=== PATIENT | female | born 1950 | race Caucasian/White ===

== ENCOUNTER → 2019-01-20 11:32 | Outpatient (CLI) | payer MEDICARE, SELFPAY ==
--- NOTE | 2019-01-20 | DI.MG.S_ITS ---
BILATERAL DIGITAL SCREENING MAMMOGRAM 3D/2D WITH CAD: 01/20/2019 CLINICAL: Routine screening. Family history of breast cancer. Comparison is made to exams dated: 11/07/2015 mammogram - [facility], 10/20/2012 mammogram, and 06/26/2011 mammogram - [facility]. There are scattered fibroglandular elements in both breasts. Current study was also evaluated with a Computer Aided Detection (CAD) system. No significant masses, calcifications, or other findings are seen in either breast. There has been no significant interval change. IMPRESSION: NEGATIVE There is no mammographic evidence of malignancy. A 1 year screening mammogram is recommended. This exam was interpreted at Station ID: [id number]. NOTE: For mammograms, a report in lay terms will be sent to the patient. Approximately 15% of breast malignancies will not be visualized mammographically. In the management of a palpable breast mass, a negative mammogram must not discourage biopsy of a clinically suspicious lesion. Electronically Signed By: Chalino carr/majo:01/20/2019 13:16:58 letter sent: Normal Exam ACR BI-RADS Category 1: Negative [id number]
[2019-01-20 12:45] LABS: Hemoglobin A1C% w Est Avg Glu 5.5 % (4.0-6.0)
[2019-01-20 15:10] LABS: Blood Urea Nitrogen 12 mg/dL (7-17); Calcium 9.7 mg/dL (8.4-10.2); Carbon Dioxide 24 mmol/L (22-32); Chloride 108 mmol/L (98-107); Cholesterol 236 mg/dL (140-199); Estimated Glomerular Filt Rate > 60.0 mL/min (>60); Glucose 110 mg/dL (80-110); HDL Cholesterol 38 mg/dL (40-60); HEMOLYSIS < 15 (0-50); LDL Cholesterol Calculated 136 mg/dL (<100); Potassium 3.7 mmol/L (3.4-5.1); Sodium 141 mmol/L (137-145); Triglycerides 311 mg/dL (35-150)
[2019-01-20 15:39] LABS: TSH w/ Reflex to FT4 1.23 uIU/mL (0.47-4.68)
== END ==
PROVIDERS: PCP Internal Medicine Geriatric Medicine; Visit Provider Internal Medicine Geriatric Medicine
DX: Z80.3 Family history of malignant neoplasm of breast (principal); Z12.31 Encounter for screening mammogram for malignant neoplasm of breast; E78.2 Mixed hyperlipidemia; E87.6 Hypokalemia; E03.8 Other specified hypothyroidism; E11.9 Type 2 diabetes mellitus without complications
CPT/HCPCS: 36415; 77063; 77067; 80048; 80061; 83036; 83735; 84443

== ENCOUNTER → 2019-02-03 17:56 | Outpatient (CLI) | payer MEDICARE, SELFPAY | PROVIDERS: PCP Internal Medicine Geriatric Medicine; Visit Provider Physician Assistant | DX: N30.00 Acute cystitis without hematuria (principal) | CPT/HCPCS: 87086 ==

== ENCOUNTER 2019-10-20 01:47 | Emergency (ER) | payer MEDICARE, SELFPAY ==
[2019-10-20 02:00] VITALS: BP 130/64; PULSE 78; RESP 16; TEMP 37; O2SAT 98; BMI 27.4
--- NOTE | 2019-10-20 02:14 | DI.CT.S_ITS ---
PROCEDURE: CT ABDOMEN PELVIS W CON INDICATIONS: severe lower abdominal pain, history of Crohn's TECHNIQUE: After the administration of intravenous contrast, 5 mm thick sections acquired from the diaphragm to the symphysis. 5 mm coronal and sagittal reformats were acquired. For radiation dose reduction, the following was used: automated exposure control, adjustment of mA and/or kV according to patient size. COMPARISON: [facility], CT, ABDOMEN/PELVIS WITH CONTRAST, 12/29/2009, 16:58. FINDINGS: Image quality: Excellent. ABDOMEN: Lung bases: Lung bases are clear. Heart size is normal. Solid organs: Evaluation of the liver demonstrates no focal hepatic lesions. The gallbladder appears within normal limits without calcified gallstones. Biliary system is non-dilated. Pancreas enhances normally. No peripancreatic fat stranding or fluid collections. No pancreatic duct dilatation. The spleen is normal in size. No adrenal nodules. Kidneys demonstrate no hydronephrosis. There are 3 nonobstructing left renal stones measuring up to 4 mm. Peritoneum and bowel: There is segmental wall thickening of the distal ascending colon and hepatic flexure with mucosal enhancement and pericolonic fat stranding consistent with a colitis. Mild nonspecific segmental wall thickening is noted in the jejunum proximally without inflammatory fat stranding or mucosal enhancement. A few short segments of mild segmental wall thickening is noted within the ileum distally with mild to moderate luminal narrowing. These are associated with short segments of mild fluid distention in the small bowel. The findings are suggestive of mild strictures. No free fluid or air. Nodes and vessels: No retroperitoneal or mesenteric adenopathy by size criteria. Aorta and inferior vena cava are normal in size. Miscellaneous: No ventral hernias. PELVIS: Genitourinary: Bladder wall thickness is normal. Miscellaneous: No inguinal hernias or adenopathy. There is a fat density mass within the right gluteus medius muscle compatible with a lipoma, measuring up to 3.0 x 1.2 cm in transverse dimension. Bones: No suspicious bony lesions. No vertebral body compression fractures. IMPRESSION: 1. Segmental colitis involving the distal ascending colon and hepatic flexure is nonspecific and may represent an acute manifestation of patient's Crohn's disease but the differential includes an infectious colitis. 2. Short segments of mild bowel wall thickening with luminal narrowing suggestive of mild strictures in the distal ileum compatible with sequelae of Crohn's disease of indeterminate acuity. No definite bowel obstruction. 3. Mild segmental wall thickening in the jejunum without associated mucosal enhancement or fat stranding are nonspecific and are of indeterminate clinical significance. Dictated by: Stan Francois M.D. on 10/20/2019 at 9:16 Approved by: Stan Francois M.D. on 10/20/2019 at 9:41
[2019-10-20 02:39] LABS: Add Manual Diff / Slide Review NO; Basophils Absolute Auto 0 /uL (0-100); Basophils Percent Auto 0.5 % (0-2); Eosinophils Absolute Auto 200 /uL (0-450); Eosinophils Percent Auto 2.2 % (2-4); Hematocrit 39.5 % (36-46); Hemoglobin 13.6 g/dL (12.0-16.0); Lymphocytes Absolute Auto 1700 /uL (1100-4500); Lymphocytes Percent Auto 18.5 % (25-40); Mean Corpuscular HGB Conc 34.3 % (30-36); Mean Corpuscular Hemoglobin 30.1 PG (26-34); Mean Corpuscular Volume 87.8 fL (80-100); Monocytes Absolute Auto 1100 /uL (0-900); Monocytes Percent Auto 12.2 % (3-14); Neutrophils Absolute Auto 6000 /uL (1500-7000); Neutrophils Percent Auto 66.6 % (50-75); Platelet Count 197 X10^3/uL (150-400); Red Cell Distribution Width 13.6 % (11.6-14.8); White Blood Cell Count 9.1 X10^3/uL (4.5-11.0)
[2019-10-20 02:52] LABS: Alanine Aminotransferase 16 IU/L (<35); Albumin 4.5 g/dL (3.5-5.0); Albumin Globulin Ratio 1.4 (1.0-2.8); Alkaline Phosphatase 112 U/L (38-126); Aspartate Aminotransferase 17 IU/L (14-36); BUN Creatinine Ratio 22.5 (6-22); Bilirubin Total 0.6 mg/dL (0.2-1.3); Blood Urea Nitrogen 16 mg/dL (7-17); Calcium 9.1 mg/dL (8.4-10.2); Carbon Dioxide 26 mmol/L (22-32); Chloride 103 mmol/L (98-107); Estimated Glomerular Filt Rate > 60.0 mL/min (>60); Globulin 3.3 g/dL (1.7-4.1); Glucose 128 mg/dL (80-110); HEMOLYSIS < 15 (0-50); Lipase 64 U/L (23-300); Potassium 3.3 mmol/L (3.4-5.1); Sodium 140 mmol/L (137-145); Total Protein 7.8 g/dL (6.3-8.2)
[2019-10-20 02:53] LABS: Lactate (Lactic Acid) 1.7 mmol/L (0.7-2.1)
--- NOTE | 2019-10-20 02:55 | ED_ITS ---
HPI - Abdominal Pain General Chief Complaint: Abdominal Pain Stated Complaint: abdominal pain Time Seen by Provider: 10/20/19 01:50 Source: patient Mode of arrival: Ambulatory Limitations: no limitations History of Present Illness HPI narrative: 69-year-old female nonsmoker with history of Crohn's, hypertension and hyperlipidemia presents with family support and a chief complaint of severe, persistent lower abdominal pain over much of the day. She denies provocation, palliation or radiation. She denies nausea or vomiting but has had upwards of 30 loose stools over the course of the day which or foul-smelling but in the absence of any blood. She denies dysuria, frequency or urgency. She has had no fever chills nor headache, runny nose, sore throat, chest pain, shortness of breath or cough and has had no exposure to persons known to have COVID-19. She was recently treated for back pain with Neurontin and a Solu-Medrol Dosepak. She denies any recent bad food or use of antibiotics. She states this feels similar in some ways to prior episodes of Crohn exacerbation but not classically. The last time she was in the emergency department or had any imaging was a few years ago. She is managed by Dr. Rivas at the [facility]. complaint: abdominal pain Onset (ago): hour(s) Pain Consistency: constant Location: LLQ and RLQ Severity: moderate Quality: cramping and aching Radiation: none Migration to: no migration Relieving factors: nothing Exacerbating factors: nothing Associated symptoms: diarrhea Related Data Home Medications Medication Instructions Recorded Confirmed lovastatin 10 mg QDAY #0 03/16/16 02/03/19 escitalopram oxalate 10 mg tablet 10 mg PO DAILY 02/03/19 02/03/19 levothyroxine PO 02/03/19 02/03/19 losartan 25 mg tablet 25 mg PO DAILY 02/03/19 02/03/19 mesalamine 1.2 gram tablet,delayed 1.2 gram PO BID tab 02/03/19 02/03/19 release Previous Rx's Medication Instructions Recorded hyoscyamine sulfate 0.125 mg PO BID-QID PRN #14 tab 10/20/19 prednisone See Rx Instructions .ROUTE 10/20/19 .COMPLEX #30 tab Allergies Allergy/AdvReac Type Severity Reaction Status Date / Time No Known Drug Allergies Allergy Verified 02/03/19 15:55 Review of Systems Constitutional Constitutional: Denies chills, Denies fatigue, Denies fever(s), Denies frequent falls, Denies lethargy and Denies weakness Eyes Eyes: Denies change in vision, Denies eye discharge, Denies irritation and Denies loss of vision ENT Ears, Nose, Mouth, and Throat: Denies change in voice, Denies dizziness, Denies neck pain, Denies sore throat and Denies throat swelling Cardiovascular Cardiovascular: Denies chest pain, Denies irregular heart rhythm, Denies lightheadedness, Denies palpitations, Denies dyspnea, Denies dyspnea on exertion and Denies orthopnea Respiratory Respiratory: Denies cough, Denies dyspnea, Denies dyspnea on exertion and Denies wheezing Gastrointestinal Gastrointestinal: Reports abdominal pain, Denies change in bowel habits, Reports diarrhea, Denies nausea and Denies vomiting Genitourinary Genitourinary: Denies hematuria, Denies flank pain, Denies urinary incontinence and Denies urinary urgency Musculoskeletal Musculoskeletal: Denies back pain, Denies muscle weakness, Denies neck pain, Denies numbness and Denies tingling Integumentary/Breasts Skin/Breast: Denies pruritus, Denies erythema, Denies rash and Denies wounds Neurologic Neurologic: Denies behavioral changes, Denies confusion, Denies dizziness, Denies frequent falls, Denies loss of vision, Denies numbness, Denies tingling and Denies weakness Psychiatric Psychiatric: Denies anxiety, Denies behavioral changes, Denies confusion, Denies depression, Denies homicidal ideation and Denies suicidal ideation Endocrine Endocrine: Denies fatigue, Denies flushing and Denies palpitations Hematologic/Lymphatic Hematologic/Lymphatic: Denies easy bruising Allergic/Immunologic Allergic/Immunologic: Denies urticaria, Denies throat swelling and Denies wheezing Patient History Social History Smoking Status: Former smoker Smoking Status: Former smoker alcohol intake frequency: 0-2 drinks per day Alcohol type: beer Substance Use Type: does not use Exam Narrative Exam Narrative: GENERAL: [69] year old patient appears stated age. Well- nourished, well-developed patient, in mild distress. HEAD: Atraumatic. Normocephalic. EYES: Pupils equal round and reactive. Extraocular motions intact. No scleral icterus. No injection or drainage. ENT: Nose without bleeding, purulent drainage. Throat without erythema, tonsillar hypertrophy or exudate. Airway patent. NECK: Trachea midline. Non tender CARDIOVASCULAR: Regular rate and rhythm without murmurs, gallops, or rubs. RESPIRATORY: Clear to auscultation. Breath sounds equal bilaterally. No wheezes, rales, or rhonchi. GASTROINTESTINAL: Abdomen soft, mild tenderness in the lower abdomen, nondistended. EXTREMITIES: No edema or joint tenderness. BACK: Nontender without deformity or crepitance. No flank tenderness. NEURO: AOx3. SKIN: No rash or erythema of visible areas Initial Vital Signs Initial Vital Signs: Vital Signs Temperature 98.6 F 10/20/19 02:00 Pulse Rate 78 10/20/19 02:00 Respiratory Rate 16 10/20/19 02:00 Blood Pressure 130/64 10/20/19 02:00 Pulse Oximetry 98 10/20/19 02:00 Course Course Course Narrative: Noted improvement after above-stated therapies. Extensive discussion regarding her history, physical, labs and reassuring imaging. Return precautions given, questions answered to her apparent satisfaction. Orders Ordered: ED Orders 10/20/19 02:14 CT abdomen pelvis w con Stat 10/20/19 02:20 EKG-12 Lead Stat 10/20/19 02:30 Complete Blood Count AUTO DIFF Stat Comprehensive Metabolic Panel Stat Lactate (Lactic Acid) Stat Lipase Stat Discontinued Medications Hydrocodone Bitart/Acetaminophen (Vicodin 5/325 Prepack) 1 bottle MISC SEEINSTR ONE Stop: 10/20/19 04:33 Hydromorphone HCl (Dilaudid) 0.5 mg IV NOW ONE Stop: 10/20/19 02:53 Last Admin: 10/20/19 03:07 Dose: 0.5 mg Documented by: DELANEY Sodium Chloride (Normal Saline 0.9%) 1,000 mls @ 1,000 mls/hr IV BOLUS ONE Stop: 10/20/19 03:12 Last Admin: 10/20/19 03:07 Dose: 1,000 mls/hr Documented by: DELANEY Methylprednisolone (Solu-Medrol 125 Mg Vial) 125 mg IV NOW ONE Stop: 10/20/19 04:34 Vital Signs Vital signs: Vital Signs - 8 hr 10/20/19 02:00 10/20/19 03:46 Temperature 98.6 F Pulse Rate 78 74 Respiratory Rate 16 14 Blood Pressure 130/64 Blood Pressure [Right Arm] 114/55 L Pulse Oximetry 98 94 MDM - Abdominal Pain Lab Data Result diagrams: 10/20/19 02:30 10/20/19 02:30 Labs: Lab Results 10/20/19 10/20/19 10/20/19 Range/Units 02:30 02:30 02:30 WBC 9.1 (4.5-11.0) X10^3/uL RBC 4.50 (4.0-5.2) X10^6/uL Hgb 13.6 (12.0-16.0) g/dL Hct 39.5 (36-46) % MCV 87.8 (80-100) fL MCH 30.1 (26-34) PG MCHC 34.3 (30-36) % RDW 13.6 (11.6-14.8) % Plt Count 197 (150-400) X10^3/uL Neut % (Auto) 66.6 (50-75) % Lymph % (Auto) 18.5 L (25-40) % [place]le % (Auto) 12.2 (3-14) % Eos % (Auto) 2.2 (2-4) % Baso % (Auto) 0.5 (0-2) % Neut # (Auto) 6000 (3490-4821) /uL Lymph # (Auto) 1700 (9244-9503) /uL Beadle # (Auto) 1100 H (0-900) /uL Eos # (Auto) 200 (0-450) /uL Baso # (Auto) 0 (0-100) /uL Sodium 140 (137-145) mmol/L Potassium 3.3 L (3.4-5.1) mmol/L Chloride 103 (98-107) mmol/L Carbon Dioxide 26 (22-32) mmol/L BUN 16 (7-17) mg/dL Creatinine 0.71 (0.52-1.04) mg/dL Estimated GFR > 60.0 (>60) mL/min BUN/Creatinine Ratio 22.5 H (6-22) Glucose 128 H (80-110) mg/dL Lactate 1.7 (0.7-2.1) mmol/L Calcium 9.1 (8.4-10.2) mg/dL Total Bilirubin 0.6 (0.2-1.3) mg/dL AST 17 (14-36) IU/L ALT 16 (<35) IU/L Alkaline Phosphatase 112 (38-126) U/L Total Protein 7.8 (6.3-8.2) g/dL Albumin 4.5 (3.5-5.0) g/dL Globulin 3.3 (1.7-4.1) g/dL Albumin/Globulin Ratio 1.4 (1.0-2.8) Lipase 64 (23-300) U/L Point of care testing: Urine Dip Bedside Urine Glucose Negative Bedside Urine Bilirubin - Negative Bedside Urine Ketone - Negative Urine Specific [place] 1.015 Bedside Urine Occult Blood - Negative Bedside Urine pH 5.0 Bedside Urine Protein - Negative Bedside Urine Urobilinogen - Negative Bedside Urine Nitrite - Negative Bedside Urine Leukocytes - Negative Esterase Imaging Data CT scan - abdomen/pelvis: Radiologist's Impression: Segmental inflammation of proximal jejunal loops decreased antegrade flow of intraluminal contents likely secondary to inflammatory bowel disease Discharge Plan Departure Patient Disposition: Home Clinical Impression: Abdominal pain Qualifiers: Abdominal location: unspecified location Qualified Code(s): R10.9 - Unspecified abdominal pain Crohn's colitis Qualifiers: Digestive disease complication type: without complication Qualified Code(s): K50.10 - Crohn's disease of large intestine without complications Instructions: DI for Crohn's Disease, DI for Abdominal Pain-Adult Activity Restrictions/Additional Instructions: *You have been diagnosed with [abdominal pain likely due to Crohn's flare] *What to do: *Take medications as directed: Prescriptions electronically transmitted to [facility] *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 Let them know you were seen in the Emergency Department and that we ask that you be seen in follow up *Return to ER if you should have any new, worsening or concerning symptoms Prescriptions: New hyoscyamine sulfate 0.125 mg tablet 0.125 mg PO BID-QID PRN (Reason: dyspepsia) Qty: 14 RF: 0 prednisone 10 mg tablet See Rx Instructions .ROUTE .COMPLEX Qty: 30 RF: 0 No Action losartan [Cozaar] 25 mg tablet 25 mg PO DAILY RF: 0 mesalamine [Lialda] 1.2 gram tablet,delayed release (DR/EC) 1.2 gram PO BID RF: 0 levothyroxine PO RF: 0 escitalopram oxalate 10 mg tablet 10 mg PO DAILY RF: 0 lovastatin 10 MG tablet 10 mg QDAY Qty: 0 RF: 0 Referrals: Thu Buckner MD [Primary Care Provider] -
[2019-10-20] MEDS: SODIUM CHLORIDE 0.9% 1,000 ML 1000 ML IV (03:07)
[2019-10-20] MEDS: HYDROMORPHONE 0.5 MG INJ IV ×2 (03:07→05:29)
[2019-10-20 03:46] VITALS: BP 114/55; PULSE 74; RESP 14; O2SAT 94
[2019-10-20] MEDS: methylPREDNISolone 125 MG/2 ML VIAL IV (05:20)
[2019-10-20] MEDS: HYDROCODONE/ACET 5/325 PREPACK 1 BOTTLE MISC (05:29)
[2019-10-20 06:07] VITALS: BP 126/67; PULSE 74; RESP 18; TEMP 37; O2SAT 96
== END 2019-10-20 06:00 | disposition home or self-care (01) ==
PROVIDERS: Emergency Provider Emergency Medicine; PCP Internal Medicine Geriatric Medicine
DX: K50.10 Crohn's disease of large intestine without complications (principal); R10.9 Unspecified abdominal pain; I10 Essential (primary) hypertension; E78.5 Hyperlipidemia, unspecified
CPT/HCPCS: 36415; 74177; 80053; 81003; 83605; 83690; 85025; 93005; 96361; 96374; 96375; 96376; 99284; J1170; J2930; Q9967

== ENCOUNTER → 2019-10-21 16:31 | Outpatient (CLI) | payer MEDICARE, SELFPAY ==
[2019-10-21 18:31] LABS: Clostridium Difficile Tox PCR Negative for C. diff
[2019-10-29 16:38] LABS: Calprotectin, Stool 405 ug/g (0-120)
== END ==
PROVIDERS: PCP Internal Medicine Geriatric Medicine; Referring Provider Internal Medicine; Visit Provider Internal Medicine
DX: R19.7 Diarrhea, unspecified (principal)
CPT/HCPCS: 83993; 87493

== ENCOUNTER → 2019-11-20 17:26 | Outpatient (CLI) | payer MEDICARE, SELFPAY ==
[2019-11-20 17:55] LABS: Add Manual Diff / Slide Review NO; Basophils Absolute Auto 0 /uL (0-100); Basophils Percent Auto 0.4 % (0-2); Eosinophils Absolute Auto 100 /uL (0-450); Eosinophils Percent Auto 0.9 % (2-4); Hematocrit 38.5 % (36-46); Hemoglobin 13.5 g/dL (12.0-16.0); Lymphocytes Absolute Auto 1200 /uL (1100-4500); Lymphocytes Percent Auto 12.8 % (25-40); Mean Corpuscular HGB Conc 35.1 % (30-36); Mean Corpuscular Hemoglobin 30.9 PG (26-34); Mean Corpuscular Volume 88.2 fL (80-100); Monocytes Absolute Auto 600 /uL (0-900); Monocytes Percent Auto 6.4 % (3-14); Neutrophils Absolute Auto 7600 /uL (1500-7000); Neutrophils Percent Auto 79.5 % (50-75); Platelet Count 187 X10^3/uL (150-400); Red Blood Cell Count 4.36 X10^6/uL (4.0-5.2); Red Cell Distribution Width 14.7 % (11.6-14.8); White Blood Cell Count 9.5 X10^3/uL (4.5-11.0)
[2019-11-20 18:09] LABS: Alanine Aminotransferase 20 IU/L (<35); Albumin 4.5 g/dL (3.5-5.0); Albumin Globulin Ratio 1.7 (1.0-2.8); Alkaline Phosphatase 92 U/L (38-126); Aspartate Aminotransferase 17 IU/L (14-36); BUN Creatinine Ratio 23.2 (6-22); Bilirubin Total 0.5 mg/dL (0.2-1.3); Blood Urea Nitrogen 13 mg/dL (7-17); Calcium 9.9 mg/dL (8.4-10.2); Carbon Dioxide 26 mmol/L (22-32); Chloride 105 mmol/L (98-107); Estimated Glomerular Filt Rate > 60.0 mL/min (>60); Globulin 2.6 g/dL (1.7-4.1); Glucose 179 mg/dL (80-110); HEMOLYSIS < 15 (0-50); Sodium 139 mmol/L (137-145); Total Protein 7.1 g/dL (6.3-8.2)
[2019-11-21 12:10] LABS: Varicella IgG Antibody >4000 index (Immune >165)
== END ==
PROVIDERS: PCP Internal Medicine Geriatric Medicine; Referring Provider Internal Medicine; Visit Provider Internal Medicine
DX: K52.9 Noninfective gastroenteritis and colitis, unspecified (principal)
CPT/HCPCS: 36415; 80053; 85025; 86787

== ENCOUNTER → 2020-01-26 11:58 | Outpatient (CLI) | payer MEDICARE, SELFPAY ==
[2020-01-27 12:12] LABS: COVID19 Sendout Not Detected (Not Detected)
== END ==
PROVIDERS: PCP Internal Medicine Geriatric Medicine; Visit Provider Physician Assistant
DX: R05 Cough (principal); Z11.59 Encounter for screening for other viral diseases
CPT/HCPCS: 87635

== ENCOUNTER 2020-02-05 01:27 | Emergency (ER) | payer MEDICARE, SELFPAY ==
--- NOTE | 2020-02-05 01:29 | ED.ABDPAIN ---
HPI - Abdominal Pain General Chief Complaint: Back Pain/Injury Stated Complaint: left side pain into abdomen/poss kidney stone Time Seen by Provider: 02/05/20 01:29 Source: patient Mode of arrival: Ambulatory Limitations: no limitations History of Present Illness HPI narrative: 69-year-old female nonsmoker with history of Crohn's, hypertension and hyperlipidemia, and kidney stones presents with the chief complaint of sudden onset left flank pain which started a few hours ago. She states that radiates around her left flank into her groin. She states that she has a baseline level of discomfort but has episodes of worsening pain that seemed to have a mind of their own and she is unable the find a position of comfort. She denies any fever chills. She denies dysuria, frequency or urgency. She denies change in bowel habits such as constipation or diarrhea. She denies runny nose, sore throat or cough. She states it feels much more like a kidney stone than her Crohn's flare ups Related Data Home Medications Medication Instructions Recorded Confirmed lovastatin 10 mg QDAY #0 03/16/16 02/03/19 escitalopram oxalate 10 mg tablet 10 mg PO DAILY 02/03/19 02/03/19 levothyroxine PO 02/03/19 02/03/19 losartan 25 mg tablet 25 mg PO DAILY 02/03/19 02/03/19 mesalamine 1.2 gram tablet,delayed 1.2 gram PO BID tab 02/03/19 02/03/19 release Previous Rx's Medication Instructions Recorded hyoscyamine sulfate 0.125 mg PO BID-QID PRN #14 tab 10/20/19 prednisone See Rx Instructions .ROUTE 10/20/19 .COMPLEX #30 tab cephalexin [Keflex] 500 mg PO QID 7 Days #28 cap 02/05/20 hydrocodone-acetaminophen 1 tab PO Q4-6H PRN #10 tab 02/05/20 ketorolac 10 mg PO Q6H PRN #14 tab 02/05/20 ondansetron 4 mg PO TID-QID PRN #10 tab 02/05/20 tamsulosin [Flomax] 0.4 mg PO DAILY #10 cap 02/05/20 Allergies Allergy/AdvReac Type Severity Reaction Status Date / Time No Known Drug Allergies Allergy Verified 01/26/20 13:09 Review of Systems Constitutional Constitutional: Denies chills, Denies fatigue, Denies fever(s), Denies frequent falls, Denies lethargy and Denies weakness Eyes Eyes: Denies change in vision, Denies eye discharge, Denies irritation and Denies loss of vision ENT Ears, Nose, Mouth, and Throat: Denies change in voice, Denies dizziness, Denies neck pain, Denies sore throat and Denies throat swelling Cardiovascular Cardiovascular: Denies chest pain, Denies irregular heart rhythm, Denies lightheadedness, Denies palpitations, Denies dyspnea, Denies dyspnea on exertion and Denies orthopnea Respiratory Respiratory: Denies cough, Denies dyspnea, Denies dyspnea on exertion and Denies wheezing Gastrointestinal Gastrointestinal: Denies abdominal pain, Denies change in bowel habits, Denies diarrhea, Denies nausea and Denies vomiting Genitourinary Genitourinary: Reports flank pain Genitourinary: Reports flank pain Musculoskeletal Musculoskeletal: Reports back pain, Denies neck pain and Denies numbness Integumentary/Breasts Skin/Breast: Denies pruritus, Denies erythema, Denies rash and Denies wounds Neurologic Neurologic: Denies behavioral changes, Denies confusion, Denies dizziness, Denies frequent falls, Denies loss of vision, Denies numbness and Denies weakness Psychiatric Psychiatric: Denies anxiety, Denies behavioral changes, Denies confusion, Denies depression, Denies homicidal ideation and Denies suicidal ideation Endocrine Endocrine: Denies fatigue, Denies flushing and Denies palpitations Hematologic/Lymphatic Hematologic/Lymphatic: Denies easy bruising Allergic/Immunologic Allergic/Immunologic: Denies urticaria, Denies throat swelling and Denies wheezing Patient History Social History Smoking Status: Former smoker Smoking Status: Former smoker alcohol intake frequency: 0-2 drinks per day Alcohol type: beer Substance Use Type: does not use Exam Narrative Exam Narrative: GENERAL: [69] year old patient appears stated age. Well-nourished, well-developed patient, in mild distress. HEAD: Atraumatic. Normocephalic. EYES: Pupils equal round and reactive. Extraocular motions intact. No scleral icterus. No injection or drainage. ENT: Nose without bleeding, purulent drainage. Throat without erythema, tonsillar hypertrophy or exudate. Airway patent. NECK: Trachea midline. Non tender CARDIOVASCULAR: Regular rate and rhythm without murmurs, gallops, or rubs. RESPIRATORY: Clear to auscultation. Breath sounds equal bilaterally. No wheezes, rales, or rhonchi. GASTROINTESTINAL: Abdomen soft, non-tender, nondistended. EXTREMITIES: No edema or joint tenderness. BACK: Nontender without deformity or crepitance. No flank tenderness. NEURO: AOx3. SKIN: No rash or erythema of visible areas Initial Vital Signs Initial Vital Signs: Vital Signs Temperature 98 F 02/05/20 01:36 Pulse Rate 82 02/05/20 01:36 Respiratory Rate 18 02/05/20 01:36 Blood Pressure 130/60 02/05/20 01:36 Pulse Oximetry 96 02/05/20 01:36 Course Orders Ordered: ED Orders 02/05/20 01:45 Urine Culture Stat Urine Microscopic Stat 02/05/20 01:51 Basic Metabolic Panel Stat Complete Blood Count AUTO DIFF Stat 02/05/20 02:08 CT kidney ureter bladder (KUB) Stat Discontinued Medications Hydrocodone Bitart/Acetaminophen (Vicodin 5/325 Prepack) 1 bottle MISC SEEINSTR ONE Stop: 02/05/20 03:11 Last Admin: 02/05/20 03:22 Dose: 1 bottle Documented by: PALOMA Lactated Ringer's (Lactated Ringers) 1,000 mls @ 1,000 mls/hr IV BOLUS ONE Stop: 02/05/20 02:34 Last Infusion: 02/05/20 03:22 Dose: 0 mls/hr Documented by: Admin: 02/05/20 01:51 Dose: 1,000 mls/hr Documented by: RILEY Ceftriaxone Sodium/Dextrose (Rocephin) 1 gm in 50 mls @ 100 mls/hr IV NOW ONE Stop: 02/05/20 02:37 Last Infusion: 02/05/20 02:51 Dose: 0 mls/hr Documented by: Admin: 02/05/20 02:19 Dose: 100 mls/hr Documented by: NGA Ketorolac Tromethamine (Toradol) 15 mg IV NOW ONE Stop: 02/05/20 01:36 Last Admin: 02/05/20 01:51 Dose: 15 mg Documented by: RILEY Ondansetron HCl (Zofran Odt Prepack) 1 bottle MISC SEEINSTR ONE Stop: 02/05/20 03:11 Last Admin: 02/05/20 03:22 Dose: 1 bottle Documented by: PALOMA Tamsulosin HCl (Flomax) 0.4 mg PO NOW ONE Stop: 02/05/20 03:11 Last Admin: 02/05/20 03:22 Dose: 0.4 mg Documented by: PALOMA Reevaluation(s) Reevaluation #1: Patient feels much better after above-stated therapies Vital Signs Vital signs: Vital Signs - 8 hr 02/05/20 01:36 02/05/20 03:30 Temperature 98 F Pulse Rate 82 76 Respiratory Rate 18 17 Blood Pressure 130/60 126/76 Pulse Oximetry 96 96 MDM - Abdominal Pain Lab Data Result diagrams: 02/05/20 01:51 02/05/20 01:51 Labs: Lab Results 02/05/20 02/05/20 02/05/20 Range/Units 01:45 01:51 01:51 WBC 11.1 H (4.5-11.0) X10^3/uL RBC 4.23 (4.0-5.2) X10^6/uL Hgb 12.6 (12.0-16.0) g/dL Hct 37.2 (36-46) % MCV 88.0 (80-100) fL MCH 29.7 (26-34) PG MCHC 33.7 (30-36) % RDW 12.9 (11.6-14.8) % Plt Count 194 (150-400) X10^3/uL Neut % (Auto) 76.2 H (50-75) % Lymph % (Auto) 14.6 L (25-40) % [place] % (Auto) 7.3 (3-14) % Eos % (Auto) 1.4 L (2-4) % Baso % (Auto) 0.5 (0-2) % Neut # (Auto) 8500 H (7542-9882) /uL Lymph # (Auto) 1600 (4112-9419) /uL [place] # (Auto) 800 (0-900) /uL Eos # (Auto) 200 (0-450) /uL Baso # (Auto) 100 (0-100) /uL Sodium 139 (137-145) mmol/L Potassium 4.0 (3.4-5.1) mmol/L Chloride 107 (98-107) mmol/L Carbon Dioxide 22 (22-32) mmol/L BUN 16 (7-17) mg/dL Creatinine 0.82 (0.52-1.04) mg/dL Estimated GFR > 60.0 (>60) mL/min BUN/Creatinine Ratio 19.5 (6-22) Glucose 156 H (80-110) mg/dL Calcium 9.8 (8.4-10.2) mg/dL Urine RBC 5-10/hpf H (0-5/HPF) Urine WBC 5-10/hpf H (0-5/HPF) Ur Squamous Epith Cells 0-1 /hpf (0-5/HPF) Urine Bacteria Few (2-10) H (None) Hyaline Casts 1-5/lpf (None) Ur Culture Indicated? Specimen cultured Point of care testing: Urine Dip Bedside Urine Glucose Negative Bedside Urine Bilirubin - Negative Bedside Urine Ketone - Negative Urine Specific [place] 1.025 Bedside Urine Occult Blood ++ Bedside Urine pH 6.0 Bedside Urine Protein +/- 15 Bedside Urine Urobilinogen - Negative Bedside Urine Nitrite - Negative Bedside Urine Leukocytes ++ [address] scan - abdomen/pelvis: Radiologist's Impression: Left UPJ stone with hydro MDM Narrative Medical decision making narrative: Patient with left-sided 5 mm stone in the setting of a mild urinary infection. She is shows no signs of infection, has no renal failure and is nearly completely asymptomatic at discharge. She has been given extensive return precautions and has had her questions answered to her apparent satisfaction. She does have a history with Dr. silvia franks at [facility] and states she will likely follow up with her but is happy to accept contact info for Dr. Campa as well. Discharge Plan Departure Patient Disposition: Home Clinical Impression: Kidney stone on left side, Acute UTI Discharge Date/Time: 02/05/20 03:33 Instructions: DI for Kidney Stones, DI for Urinary Tract Infection (UTI) Activity Restrictions/Additional Instructions: *You have been diagnosed with [left-sided kidney stoneWith evidence of urinary tract infection] *What to do: *Take medications as directed: Prescriptions sent to [facility] *Follow up with your primary care provider in 2-3 days, call for an appointment. Let them know you were seen in the Emergency Department and that we ask that you be seen in follow up. Also, I have given you contact information for our local urologist. It is advisable to contact his office for follow-up as well. *Return to ER if you should have any new, worsening or concerning symptoms, such as [worsening pain, shaking chills, persistent vomiting or other bothersome symptoms] Prescriptions: New hydrocodone-acetaminophen 5-325 mg tablet 1 tab PO Q4-6H PRN (Reason: pain) Qty: 10 RF: 0 ketorolac 10 mg tablet 10 mg PO Q6H PRN (Reason: pain) Qty: 14 RF: 0 tamsulosin [Flomax] 0.4 mg capsule 0.4 mg PO DAILY Qty: 10 RF: 0 cephalexin [Keflex] 500 mg capsule 500 mg PO QID 7 Days Qty: 28 RF: 0 ondansetron 4 mg tablet,disintegrating 4 mg PO TID-QID PRN (Reason: nausea and vomiting) Qty: 10 RF: 0 No Action losartan [Cozaar] 25 mg tablet 25 mg PO DAILY RF: 0 mesalamine [Lialda] 1.2 gram tablet,delayed release (DR/EC) 1.2 gram PO BID RF: 0 levothyroxine PO RF: 0 escitalopram oxalate 10 mg tablet 10 mg PO DAILY RF: 0 lovastatin 10 MG tablet 10 mg QDAY Qty: 0 RF: 0 hyoscyamine sulfate 0.125 mg tablet 0.125 mg PO BID-QID PRN (Reason: dyspepsia) Qty: 14 RF: 0 prednisone 10 mg tablet See Rx Instructions .ROUTE .COMPLEX Qty: 30 RF: 0 Referrals: Roland Campa MD [Physician] - Thu Buckner MD [Primary Care Provider] -
[2020-02-05 01:36] VITALS: BP 130/60; PULSE 82; RESP 18; TEMP 36.6; O2SAT 96
[2020-02-05] MEDS: LACTATED RINGERS 1,000 ML 1000 ML IV (01:51)
[2020-02-05] MEDS: KETOROLAC 60 MG/2 ML VIAL 15 MG IV (01:51)
[2020-02-05 01:59] LABS: Add Manual Diff / Slide Review NO; Basophils Absolute Auto 100 /uL (0-100); Basophils Percent Auto 0.5 % (0-2); Eosinophils Absolute Auto 200 /uL (0-450); Eosinophils Percent Auto 1.4 % (2-4); Hematocrit 37.2 % (36-46); Hemoglobin 12.6 g/dL (12.0-16.0); Lymphocytes Absolute Auto 1600 /uL (1100-4500); Lymphocytes Percent Auto 14.6 % (25-40); Mean Corpuscular HGB Conc 33.7 % (30-36); Mean Corpuscular Hemoglobin 29.7 PG (26-34); Monocytes Absolute Auto 800 /uL (0-900); Monocytes Percent Auto 7.3 % (3-14); Neutrophils Absolute Auto 8500 /uL (1500-7000); Neutrophils Percent Auto 76.2 % (50-75); Platelet Count 194 X10^3/uL (150-400); Red Blood Cell Count 4.23 X10^6/uL (4.0-5.2); Red Cell Distribution Width 12.9 % (11.6-14.8); White Blood Cell Count 11.1 X10^3/uL (4.5-11.0)
[2020-02-05 02:01] LABS: RBC Urine 5-10/HPF (0-5/HPF)
[2020-02-05 02:02] LABS: Bacteria Urine Few (2-10); Culture Indicated Urine Specimen Cultured; Hyaline Casts Urine 1-5/LPF; Squamous Epithelial Cell Urine 0-1 /HPF (0-5/HPF); WBC Urine 5-10/HPF (0-5/HPF)
--- NOTE | 2020-02-05 02:08 | DI.CT.S_ITS ---
PROCEDURE: CT KIDNEY URETER BLADDER (KUB) INDICATIONS: severe left flank pain, hematuria TECHNIQUE: Noncontrast 5 mm thick sections acquired from the diaphragms to the symphysis. 5 mm thick coronal and sagittal reformats were then performed. For radiation dose reduction, the following was used: automated exposure control, adjustment of mA and/or kV according to patient size. COMPARISON: [facility], CT, CT ABDOMEN PELVIS W CON, 10/20/2019, 2:15. FINDINGS: Image quality: Excellent. Lung bases: Lung bases are clear. Heart size is normal. Urinary system: Right kidney: There are 2 separate 1 mm nonobstructing stones. No hydronephrosis. Right ureter: Unremarkable Left kidney: Moderate to severe hydronephrosis, as well as perinephric stranding has developed since the previous study. This is secondary to an obstructing UPJ stone measuring 8 mm. There are 2 stones in the left kidney which are nonobstructive. The larger nonobstructive stone, in the middle pole, measures 6 mm. Left ureter: 8 mm stone in the left UPJ results in moderate to severe hydronephrosis. Bladder: No bladder stones. No bladder wall thickening. Other solid organs: Liver is normal in size. Gallbladder is unremarkable. Pancreas is normal in contours. Spleen is normal in size. No adrenal nodules. Peritoneum and bowel: Unenhanced bowel loops demonstrate normal wall thickness and caliber. No free fluid or air. Nodes and vessels: No retroperitoneal or mesenteric adenopathy by size criteria. Aorta and inferior vena cava are normal in caliber. Abdominal wall: No ventral hernias. Pelvis: No free pelvic fluid. No inguinal hernias or adenopathy. Remote hysterectomy. Bones: No suspicious bony lesions. No vertebral body compression fractures. IMPRESSION: 1. An 8 mm stone obstructs the left kidney at the level of the left UPJ resulting in moderate to severe hydronephrosis and perinephric stranding. 2. Bilateral nonobstructing renal stones. Wall Dictated by: Catracho Sauceda M.D. on 02/05/2020 at 8:07 Approved by: Catracho Sauceda M.D. on 02/05/2020 at 8:17
[2020-02-05 02:11] LABS: BUN Creatinine Ratio 19.5 (6-22); Blood Urea Nitrogen 16 mg/dL (7-17); Calcium 9.8 mg/dL (8.4-10.2); Carbon Dioxide 22 mmol/L (22-32); Chloride 107 mmol/L (98-107); Estimated Glomerular Filt Rate > 60.0 mL/min (>60); Glucose 156 mg/dL (80-110); HEMOLYSIS 18 (0-50); Sodium 139 mmol/L (137-145)
[2020-02-05] MEDS: CEFTRIAXONE 1 GM/50 ML FROZ.PIGGY IV (02:19)
[2020-02-05] MEDS: ONDANSETRON 4 MG ODT PREPACK 1 BOTTLE MISC (03:22)
[2020-02-05] MEDS: TAMSULOSIN 0.4 MG CAPSULE PO (03:22)
[2020-02-05] MEDS: HYDROCODONE/ACET 5/325 PREPACK 1 BOTTLE MISC (03:22)
[2020-02-05 03:30] VITALS: BP 126/76; PULSE 76; RESP 17; O2SAT 96
== END 2020-02-05 03:33 | disposition home or self-care (01) ==
PROVIDERS: Emergency Provider Emergency Medicine; PCP Internal Medicine Geriatric Medicine
DX: N20.0 Calculus of kidney (principal); Z87.442 Personal history of urinary calculi; N39.0 Urinary tract infection, site not specified; I10 Essential (primary) hypertension; E78.5 Hyperlipidemia, unspecified
CPT/HCPCS: 36415; 74176; 80048; 81003; 81015; 85025; 87086; 96361; 96365; 96375; 99284; J1885

== ENCOUNTER → 2020-03-11 10:30 | Outpatient (CLI) | payer MEDICARE, SELFPAY ==
--- NOTE | 2020-03-11 | DI.US.S_ITS ---
PROCEDURE: US RENAL COMPLETE INDICATIONS: Calculus of ureter TECHNIQUE: Real-time scanning was performed of the kidneys and bladder, with image documentation. COMPARISON: [facility], CT, CT KIDNEY URETER BLADDER (KUB), 02/05/2020, 2:12. FINDINGS: Kidneys: Kidneys are normal in size. Right kidney measures 11.9 cm long; left kidney measures 12.8 cm long. Right renal cortical thickness is 1.5 cm; left renal cortical thickness is 1.5 cm. Renal cortical echotexture is normal. No hydronephrosis. 1.5 cm midpole nonobstructing left renal calcification. Bladder: Pre-void bladder volume is 181 mL. Post-void residual is 58 mL. Pre-void images demonstrate no intraluminal masses or stones. On pre-void images, bilateral ureteral jets are noted with color Doppler interrogation. (Of note, ureteral jets may not be detectable in up to 25% of cases due to insufficient differences in specific gravity between ureteral and bladder urine). Miscellaneous: No free pelvic fluid. IMPRESSION: 1. 1.5 cm nonobstructing midpole left renal calcification. 2. 58 cc postvoid residual. Dictated by: Jakub Walter [facility] Interpreted: Bernard Kathleen MD on 03/11/2020 at 12:33 Approved by: Bernard Kathleen M.D. on 03/11/2020 at 17:03
== END ==
PROVIDERS: PCP Internal Medicine Geriatric Medicine; Referring Provider Internal Medicine Geriatric Medicine; Visit Provider Urology
DX: N20.1 Calculus of ureter (principal); N20.0 Calculus of kidney
CPT/HCPCS: 76770

== ENCOUNTER → 2020-03-12 08:20 | Outpatient (CLI) | payer MEDICARE, SELFPAY ==
[2020-03-14 07:55] LABS: COVID19 Sendout Not Detected (Not Detect)
== END ==
PROVIDERS: PCP Internal Medicine Geriatric Medicine; Visit Provider Physician Assistant
DX: Z11.59 Encounter for screening for other viral diseases (principal)
CPT/HCPCS: 87635